=== PATIENT | female | born 1945 | race Caucasian/White ===

== ENCOUNTER → 2018-12-28 | Outpatient (CLI) | payer OTHER | END | disposition home or self-care (01) | LOC: PLD 14:57 → LAB SHORT 14:57 | DX: D22.5 Melanocytic nevi of trunk (principal) | CPT/HCPCS: 88305 ==

== ENCOUNTER → 2021-06-27 | Outpatient (CLI) | payer OTHER | END | disposition home or self-care (01) | LOC: LAB SHORT 08:02 | DX: L57.0 Actinic keratosis (principal) | CPT/HCPCS: 88305 ==

== ENCOUNTER 2023-04-03 13:18 | Observation (INO) | payer OTHER ==
[~2023-04-03] VITALS: Ht 162.6 cm; Wt 60.5 kg
[2023-04-03 14:14] LABS: BASOPHILS ABSOLUTE AUTO 0.04 K/mm3 (0.00-0.23); BASOPHILS PERCENT AUTO 1 % (0-2); EOSINOPHILS ABSOLUTE AUTO 0.22 K/mm3 (0.00-0.68); EOSINOPHILS PERCENT AUTO 3 % (0-6); IMMATURE GRAN ABSOLUTE AUTO 0.02 K/mm3 (0.00-0.10); IMMATURE GRAN PERCENT AUTO 0 % (0-1); LYMPHOCYTES ABSOLUTE AUTO 1.67 K/mm3 (0.84-5.20); LYMPHOCYTES PERCENT AUTO 21 % (21-46); MONOCYTES ABSOLUTE AUTO 0.73 K/mm3 (0.16-1.47); MONOCYTES PERCENT AUTO 9 % (4-13); Mean Corpuscular HGB 32.4 pg (26.0-34.0); Mean Corpuscular HGB Conc 34.1 g/dL (31.5-36.5); Mean Corpuscular Volume 95 fL (80-100); Mean Platelet Volume 11.2 fL (9.1-12.4); NEUTROPHILS ABSOLUTE AUTO 5.26 K/mm3 (1.96-9.15); NEUTROPHILS PERCENT AUTO 66 % (41-73); Platelet Count 198 K/mm3 (150-400); RDW Coefficient Variation 12.9 % (11.7-14.2); RDW Standard Deviation 45.1 fL (35.1-46.3); Red Blood Cell Count 4.63 M/mm3 (3.80-5.20); White Blood Cell Count 7.94 K/mm3 (4.00-11.30)
[2023-04-03 14:19] LABS: Albumin, Blood 3.3 g/dL (3.4-5.0); Bilirubin, Total 0.5 mg/dL (0.1-1.0); Bun/Creatinine Ratio 25.5 (12.0-20.0); Calcium, Blood 9.4 mg/dL (8.5-10.1); Creatinine, Blood 0.78 mg/dL (0.40-1.00); Globulin, Blood 3.3 g/dL (2.2-4.0); Potassium, Blood 3.9 mmol/L (3.5-5.5); Total Protein, Blood 6.6 g/dL (6.4-8.2)
[2023-04-03 17:33] LABS: Anti-Xa UFH, PHA Monitoring <0.10 IU/mL; International Normalized Ratio 0.93; Prothrombin Time Results 9.8 Sec (9.7-11.5)
[2023-04-03 17:58] VITALS: BP 151/89
[2023-04-03] MEDS ORDERED: ATOR20 PO (18:02)
--- NOTE | 2023-04-03 19:30 | NUR ---
ADMIT NOTE NEW ADMIT TO UNIT FROM ER FOR UNSTABLE ANGINA. PATIENT ARRIVED ON GURNEY, ALERT, ORIENTED, ABLE TO STAND AND TRANSFER TO BED SBA. DENIES SOB, CHEST PAIN, OR DIZZINESS. ADMIT HISTORY COMPLETED. NS AND HEPARIN GTT STARTED. ROOM AIR, HYPERTENSIVE, NSR 70'S ON TELE. TOLERATING REGULAR DIET AND LIQUIDS. VOIDING WELL. REPORT GIVEN TO CHIEF PHARMACIST RN. PLAN TO BE NPO AFTER MIDNIGHT, CARDIOLOGY TO BE CONSULTED BY CHIEF PHARMACIST.
[2023-04-03 19:34] VITALS: BP 122/65
--- NOTE | 2023-04-03 19:44 | NUR ---
MEDICATION ERROR HEPARIN BOLUS OF 3,900 UNITS IV INCORRECTLY ADMINISTERED BY THIS RN VIA THE SUBCUTANEOUS ROUTE. ERROR CAUGHT BY STELLA FONTENOT RN DURING BEDSIDE SHIFT REPORT. PATIENT WAS IMMEDIATELY NOTIFIED OF ERROR. THIS RN THEN CALLED AUSTIN DE LA CRUZ NP, THE ORDERING PROVIDER, AND NOTIFIED OF MED ERROR. AUSTIN ADVISED TO NOTIFY PHARMACY AND FOLLOW THEIR DIRECTION. CALLED PHARMACY AND NOTIFIED PHARMACIST OF ERROR. THEY ADVISED NO CHANGES OR ADDITIONAL ORDERS AT THIS TIME. THEY WILL CONTINUE TO FOLLOW PATIENT AND MANAGE HEPARIN GTT PER PROTOCOL.
[2023-04-03 22:50] VITALS: BP 109/64
[2023-04-04] VITALS (7 sets, daily range): BP systolic 122–149; BP diastolic 65–108
[2023-04-04 01:06] LABS: Hematocrit 39.6 % (33.0-51.0); Hemoglobin 13.6 g/dL (11.5-16.0); Mean Corpuscular HGB 32.6 pg (26.0-34.0); Mean Corpuscular HGB Conc 34.3 g/dL (31.5-36.5); Mean Corpuscular Volume 95 fL (80-100); Mean Platelet Volume 11.4 fL (9.1-12.4); Platelet Count 177 K/mm3 (150-400); RDW Coefficient Variation 12.8 % (11.7-14.2); RDW Standard Deviation 44.8 fL (35.1-46.3); Red Blood Cell Count 4.17 M/mm3 (3.80-5.20); White Blood Cell Count 8.87 K/mm3 (4.00-11.30)
[2023-04-04 01:26] LABS: Calcium, Blood 8.6 mg/dL (8.5-10.1); Creatinine, Blood 1.11 mg/dL (0.40-1.00); Potassium, Blood 3.9 mmol/L (3.5-5.5)
--- NOTE | 2023-04-04 05:39 | NUR ---
SHIFT SUMMARY NO ACUTE CHANGES THIS SHIFT. VSS. DENYING CP. ON HEPARIN GTT. IN SB/SR. ON RA/ CONTINENT, UP TO BATHROOM MULTIPLE TIMES THIS SHIFT. FLUIDS INFUSING PER EMAR. PT MADE NPO AT MIDNIGHT FOR POSSIBILITY OF ANGIO POST CARDIOLOGY CONSULT. RESTING FOR MAJORITY OF NIGHT.
--- NOTE | 2023-04-04 10:13 | NUR ---
CARDIAC STRESS TEST ORDERED THIS AM AFTER NITRO DOSE WAS GIVEN. 2ND PART OF STRESS TEST TO BE COMPLETED TOMORROW, RESTING PORTION COMPLETED TODAY. CALL PLACED BY THIS RN TO MD WAGNER. NITRO PASTE DISCONTINUED. HEPARIN GTT CONTINUES.
--- NOTE | 2023-04-04 10:22 | NUR ---
ASSUMPTION OF CARE THIS RN ASSUMED CARE AT APPROX 0715. PT AOX4. PLEASANT, COOPERATIVE WITH CARE. ABLE TO COMMUNICATE NEEDS EFFECTIVELY NEEDED. VSS. BP STABLE. ONE EPISODE OF REPORTED CHEST PRESSURE FOLLOWING AMBULATION TO RESTROOM. PRESSURE RADIATING TO L ARM. REPORTS THAT PRESSURE IS TOLERABLE, SEEMS TO BE DECREASING WITH REST. NITRO PASTE DC'd DUE TO STRESS TEST. ECHOCARDIOGRAM COMPLETED THIS MORNING. UNABLE TO PERFORM ONE DAY STRESS TEST PROTOCOL DUE TO NITRO USE THIS MORNING, PLAN FOR TWO-DAY PROTOCOL. HEPARIN GTT INFUSING PER EMAR. CURRENTLY ON ROOM AIR, SATS >90%. PT IS A STANDBY ASSIST IN ROOM FOR CORD/DEVICE MANAGEMENT. VOIDING. PT IS CURRENTLY OUT OF ROOM COMPLETING PORTION OF STRESS TEST. WILL CONTINUE TO MONITOR. CALL LIGHT IN REACH.
--- NOTE | 2023-04-04 10:35 | NUR ---
UPDATE CALL PLACED TO MD MALLOY TO CLARIFY HEPARIN GTT, THIS RN READ PLAN TO DISCONTINUE HEPARIN IN CONSULT NOTE. RCVD ORDER TO DC HEPARIN GTT. PHARMACY NOTIFIED.
--- NOTE | 2023-04-04 10:49 | NUR ---
UPDATE PT RETURNED FROM NUCLEAR MEDICINE VIA WHEELCHAIR. REPORTS THAT CHEST PRESSURE IS NOW GONE. HEPARIN GTT STOPPED. CALL LIGHT IN REACH.
--- NOTE | 2023-04-04 11:26 | NUR ---
Pt. is awake in bed when she welcomes my visit. Pt. is pleasant but guarded at first. Faclitated a life review and listened with interest, empathy and a calming presence. Pt. displays evidence of being aware and engaged in her care. Prayed with the Pt. Pt. verbalized gratitude for the spiritual care visit and requested a nurse come visit.
[2023-04-04 13:05] LABS: LDL/HDL RATIO 0.6; Very Low Density Lipoprot Chol 40 mg/dL (6-32)
[2023-04-04 13:06] LABS: CHOL/HDL RATIO 2.4; Cholesterol 121 mg/dL (50-200); HDL Cholesterol 51 mg/dL (>39); Low Density Lipoprotein Chol 30 mg/dL (0-110); Triglycerides 201 mg/dL (30-160)
--- NOTE | 2023-04-04 17:22 | NUR ---
SHIFT SUMMARY NO ACUTE CHANGES SINCE EARLIER NOTES. PT REMAINS AOX4. COOPERATIVE WITH CARE. ABLE TO COMMUNICATE NEEDS EFFECTIVELY NEEDED. USES CALL LIGHT APPROPRIATELY. VS REMAIN STABLE. BP STABLE. NO FURTHER EPISODES OF CHEST PRESSURE WITH ACTIVITY SINCE EARLIER (SEE NOTE). ECHOCARDIOGRAM AND FIRST PORTION OF STRESS TEST COMPLETED. PT NPO AT MIDNIGHT, EXCEPT FOR WATER, FOR SECOND PORTION OF STRESS TEST TOMORROW MORNING. HEPARIN GTT DC'D. REMAINS ON ROOM AIR, SATS >90%. STANDY BY ASSIST IN ROOM. VOIDING. IVF INFUSING PER EMAR. PT IS CURRENTLY SITTING UP IN BED EATING DINNER. CALL LIGHT IN REACH. WILL REPORT TO ONCOMING RN.
--- NOTE | 2023-04-04 20:35 | NUR ---
ASSUMED PT CARE FORM RN ON . A&OX4. ABLE TO FOLLOW DIRECTIONS AND MAKE NEEDS KNOWN. DENIES CHEST PAIN/PRESSURE. HR SR IN 70'S. O2 SATS > 92% ON RA. DENIES NAUSEA. AMBULATES IN ROOM WITH SBA WITH IV PUMP. GAIT STEADY. VOIDING WITHOUT DIFFICULTY. CALL LIGHT IN REACH. BED IN LOW POSITION. USING CALL LIGHT APPROPRIATELY.
[2023-04-05 04:26] VITALS: BP 145/84
--- NOTE | 2023-04-05 06:16 | NUR ---
SHIFT SUMMARY: NO ACUTE CHANGES NOTED DURING THIS SHIFT. RESTING COMFORTABLY IN BED WITH EYES CLOSED, APPEARS TO BE SLEEPING. NPO AT CO FOR STRESS TEST THIS A.M. CALL LIGHT IN REACH. IN BED IN LOW POSITION.
[2023-04-05 07:36] LABS: BASOPHILS ABSOLUTE AUTO 0.04 K/mm3 (0.00-0.23); BASOPHILS PERCENT AUTO 1 % (0-2); EOSINOPHILS ABSOLUTE AUTO 0.36 K/mm3 (0.00-0.68); EOSINOPHILS PERCENT AUTO 5 % (0-6); Hematocrit 42.4 % (33.0-51.0); Hemoglobin 14.2 g/dL (11.5-16.0); IMMATURE GRAN ABSOLUTE AUTO 0.03 K/mm3 (0.00-0.10); IMMATURE GRAN PERCENT AUTO 0 % (0-1); LYMPHOCYTES ABSOLUTE AUTO 2.26 K/mm3 (0.84-5.20); LYMPHOCYTES PERCENT AUTO 29 % (21-46); MONOCYTES ABSOLUTE AUTO 0.86 K/mm3 (0.16-1.47); MONOCYTES PERCENT AUTO 11 % (4-13); Mean Corpuscular HGB 32.2 pg (26.0-34.0); Mean Corpuscular HGB Conc 33.5 g/dL (31.5-36.5); Mean Corpuscular Volume 96 fL (80-100); Mean Platelet Volume 11.6 fL (9.1-12.4); NEUTROPHILS ABSOLUTE AUTO 4.15 K/mm3 (1.96-9.15); NEUTROPHILS PERCENT AUTO 54 % (41-73); Platelet Count 191 K/mm3 (150-400); RDW Coefficient Variation 12.7 % (11.7-14.2); RDW Standard Deviation 45.2 fL (35.1-46.3); Red Blood Cell Count 4.41 M/mm3 (3.80-5.20)
[2023-04-05 07:56] LABS: Albumin/Globulin Ratio 0.9 (0.8-1.8); Bilirubin, Total 0.7 mg/dL (0.1-1.0); Bun/Creatinine Ratio 18.1 (12.0-20.0); Calcium, Blood 8.8 mg/dL (8.5-10.1); Creatinine, Blood 0.88 mg/dL (0.40-1.00); Globulin, Blood 3.3 g/dL (2.2-4.0); Total Protein, Blood 6.3 g/dL (6.4-8.2)
[2023-04-05 08:13] VITALS: BP 146/83
--- NOTE | 2023-04-05 09:41 | NUR ---
ASSUMPTION OF CARE THIS RN ASSUMED CARE AT APPROX 0715. PT AOX4. COOPERATIVE WITH CARE. RECEPTIVE TO EDUCATION, ASKS QUESTIONS REGARDING PLAN OF CARE. VSS. TELEMETRY SHOWING SINUS RHYTHM 60's-70's. BP STABLE. NO REPORT OF CHEST PAIN OR PRESSURE. SECOND PORTION OF STRESS TEST INITIATED, TO BE COMPLETED THIS MORNING. ON ROOM AIR, SATS >90%. VOIDING. INDEPENDENT AT BASELINE, STAND BY ASSIST FOR CORD/DEVICE MANAGEMENT. CURRENTLY SITTING IN CHAIR WATCHING TV. CALL LIGHT IN REACH.
[2023-04-05 10:57] VITALS: BP 157/78
--- NOTE | 2023-04-05 11:00 | NUR ---
UPDATE SECOND PORTION OF STRESS TEST COMPLETED. VS REMAIN STABLE. THIS RN CONTACTED MD KAUFMAN REGARDING NEED FOR CONTINUATION OF IV FLUIDS. PER MD, IV FLUIDS TO BE DISCONTINUED. MD TO PUT IN ORDER. PT IS CURRENTLY SITTING IN CHAIR. CALL LIGHT IN REACH.
[2023-04-05 14:56] VITALS: BP 133/83
--- NOTE | 2023-04-05 17:29 | NUR ---
END OF SHIFT NOTE NO ACUTE CHANGES SINCE PREVIOUS NOTES. PT REMAINS AOX4. VS REMAIN STABLE. BP STABLE. NO REPORT OF CHEST PAIN OR PRESSURE. SECOND PORTION OF STRESS TEST COMPLETED TODAY, AWAITING REVIEW. IMAGING CALLED FOR STRESS TEST TO BE READ. REMAINS ON ROOM AIR, SATS >90%. FREQUENTLY UP IN ROOM TO USE RESTROOM, INDEPENDENT TO STAND BY ASSIST. VOIDING. UP IN RECLINER CHAIR FOR MAJORITY OF THE DAY, IS CURRENTLY SITTING IN CHAIR EATING DINNER. CALL LIGHT IN REACH. WILL REPORT TO ONCOMING RN.
[2023-04-05 19:45] VITALS: BP 137/91
--- NOTE | 2023-04-05 20:32 | NUR ---
ASSUMED PT CARE FORM RN ON . A&OX4. DENIES ANY CHEST PAIN/PRESSURE. HR SR IN 70'S WITH STABLE BP, SEE VS RECORD. DENIES SOB WITH SATS > 92% ON RA. DENIES NAUSEA. DENIES NEEDS AT THIS TIME. CALL LIGHT IN REACH. BED IN LOW POSITION.
[2023-04-06 01:36] VITALS: BP 133/73
[2023-04-06 03:58] LABS: BASOPHILS ABSOLUTE AUTO 0.04 K/mm3 (0.00-0.23); BASOPHILS PERCENT AUTO 0 % (0-2); EOSINOPHILS ABSOLUTE AUTO 0.43 K/mm3 (0.00-0.68); EOSINOPHILS PERCENT AUTO 5 % (0-6); Hematocrit 43.7 % (33.0-51.0); Hemoglobin 15.2 g/dL (11.5-16.0); IMMATURE GRAN ABSOLUTE AUTO 0.03 K/mm3 (0.00-0.10); IMMATURE GRAN PERCENT AUTO 0 % (0-1); LYMPHOCYTES ABSOLUTE AUTO 2.34 K/mm3 (0.84-5.20); LYMPHOCYTES PERCENT AUTO 24 % (21-46); MONOCYTES ABSOLUTE AUTO 0.88 K/mm3 (0.16-1.47); MONOCYTES PERCENT AUTO 9 % (4-13); Mean Corpuscular HGB 32.8 pg (26.0-34.0); Mean Corpuscular HGB Conc 34.8 g/dL (31.5-36.5); Mean Corpuscular Volume 94 fL (80-100); Mean Platelet Volume 11.5 fL (9.1-12.4); NEUTROPHILS ABSOLUTE AUTO 5.88 K/mm3 (1.96-9.15); NEUTROPHILS PERCENT AUTO 61 % (41-73); Platelet Count 194 K/mm3 (150-400); RDW Coefficient Variation 12.7 % (11.7-14.2); RDW Standard Deviation 44.1 fL (35.1-46.3); Red Blood Cell Count 4.64 M/mm3 (3.80-5.20)
[2023-04-06 04:24] LABS: Albumin, Blood 3.2 g/dL (3.4-5.0); Albumin/Globulin Ratio 0.9 (0.8-1.8); Bilirubin, Total 0.7 mg/dL (0.1-1.0); Bun/Creatinine Ratio 23.5 (12.0-20.0); Calcium, Blood 9.2 mg/dL (8.5-10.1); Creatinine, Blood 0.89 mg/dL (0.40-1.00); Globulin, Blood 3.6 g/dL (2.2-4.0); Potassium, Blood 3.9 mmol/L (3.5-5.5); Total Protein, Blood 6.8 g/dL (6.4-8.2)
[2023-04-06 05:05] VITALS: BP 126/65
[2023-04-06 05:06] VITALS: BP 126/65
--- NOTE | 2023-04-06 06:05 | NUR ---
SHIFT SUMMARY: PT SLEEPING THROUGHOUT WHOLE OF SHIFT. WAKES EASILY FOR VITAL SIGNS BUT FALLS BACK TO SLEEP. NO ACUTE CHANGES NOTED. NO COMPLAINTS OF CHEST PAIN/PRESSURE. CALL LIGHT IN REACH. BED IN LOW POSITION.
[2023-04-06 07:53] VITALS: BP 137/86
--- NOTE | 2023-04-06 09:57 | NUR ---
MORNING NOTE THIS RN ASSUMED CARE AT APPROX 0715. PT AOX4, PLEASANT. VERBALIZING DESIRE TO DISCHARGE HOME TODAY. COOPERATIVE WITH CARE AND ABLE TO COMMUNICATE HER NEEDS WHEN NEEDED. VSS. BP STABLE. DENIES CHEST PAIN OR PRESSURE. TELEMETRY SHOWING SINUS 60's-70's. ON ROOM AIR, SATS >90%. UP TO RESTROOM THIS MORNING, VOIDED. INDEPENDENT IN ROOM, CALLS APPROPRIATELY FOR ASSISTANCE IF NEEDED. IS SITTING IN RECLINER CHAIR. MD MALLOY TO BEDSIDE THIS MORNING TO DISCUSS STRESS TEST RESULTS. PLAN TO DISCHARGE HOME TODAY. ZIOPATCH PLACEMENT ORDERED. UNABLE TO PLACE PATCH PRIOR TO DISCHARGE TECH IS UNAVAILABLE TODAY. MD MALLOY AWARE OF AND AGREEABLE WITH PLAN FOR FOLLOW UP APPOINTMENT TOMORROW, 04/07, FOR ZIOPATCH PLACEMENT. THIS RN CALLED [facility] AND LEFT VOICEMAIL FOR SCHEDULING. THIS RN FAXED OUTPATIENT CARDIOLOGY OFFICE FOR APPOINTMENT SCHEDULING - BOTH FOR ZIOPATCH PLACEMENT 04/07 AND FOLLOW UP IN 1 WEEK. PT TO TAKE COPY OF ZIO PATCH ORDER WITH DISCHARGE PAPERWORK. THIS RN DISCUSSED UPDATE WITH MD PAYNE IN PERSON, INCLUDING LIST OF DISCHARGE MEDICATIONS ORDERED BY MD MALLOY. MD PAYNE TO PUT IN ORDER FOR PO LASIX, IMDUR, AND SUBLINGUAL NITRO TABS. PT AGREES WITH DISCHARGE PLAN, ENGAGES IN EDUCATION, ASKING QUESTIONS NEEDED. VERBALIZING UNDERSTANDING. CALL LIGHT IN REACH.
[2023-04-06] MEDS ORDERED: ASPI81CH PO (11:58)
[2023-04-06] MEDS ORDERED: FURO20 PO (11:58)
[2023-04-06] MEDS ORDERED: Isosorbide Mono30 MG PO (11:59)
[2023-04-06 12:07] VITALS: BP 136/80
--- NOTE | 2023-04-06 12:58 | NUR ---
DISCHARGE NOTE NO ACUTE CHANGES SINCE PREVIOUS NOTE. PT REMAINS AOX4. VS REMAIN STABLE. BP STABLE. TELEMETRY CONTINUING TO SHOW SR 70's PRIOR TO REMOVAL. NO REPORT OF CHEST PAIN OR PRESSURE. REMAINS ON ROOM AIR, SATS >90%. AT BASELINE MOBILITY STATUS, INDEPENDENT IN ROOM. ABLE TO PERFORM MORNING ADL's W/O ASSIST, INCLUDING PERFORMING A PARTIAL BATH AND DRESSING HERSELF FOR DISCHARGE. IV REMOVED. CYCLE REPAIRER REMOVED. THIS RN PROVIDED DISCHARGE EDUCATION, INCLUDING MEDICATIONS, APPOINTMENT FOR ZIO PATCH TOMORROW 04/07 (COPY OF ZIO PATCH ORDER PROVIDED WITH DISCHARGE EDUCATION), FOLLOW UP APPOINTMENT WITH TELEVISION PRESENTER, AND FOLLOW UP WITH PRIMARY CARE PROVIDER. PT RECEPTIVE TO EDUCATION, ASKS QUESTIONS NEEDED, AND DEMONSTRATES VERBAL UNDERSTANDING. REPORTS NO ADDITIONAL QUESTIONS. PT TO CALL WHEN HER SQL SERVER DEVELOPER IS HERE TO PICK HER UP, WILL TRANSFER TO PERSONAL VEHICLE VIA WHEELCHAIR.
--- NOTE | 2023-04-06 13:14 | NUR ---
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 PT TRANSFERRED OFF OF UNIT AT APPROX 1310 VIA WHEELCHAIR BY THIS RN AND NEIDA RN. PRIOR TO TRANSFERRING HER TO PERSONAL VEHICLE, THIS RN AND NEIDA RN SHOWED PT LOCATION OF [facility] FOR FOLLOW UP APPOINTMENT TOMORROW, 04/07, FOR ZIO PATCH PLACEMENT. PT TRANSFERRED TO PERSONAL VEHICLE AT APPROX 1315. PERSONAL BELONGINGS W/ PT.
[2023-04-07] MEDS ORDERED: VARENICLINE TART1 M2 PO (23:06)
== END 2023-04-06 13:15 | disposition home or self-care (01) ==
LOC: ER 13:18 → PCU 16:43
PROVIDERS: Emergency Medicine; Nurse Practitioner Acute Care; Student in an Organized Health Care Education/Training Program; ADMIT Family Medicine
DX: I25.118 Atherosclerotic heart disease of native coronary artery with other forms of angina pectoris (principal); I25.2 Old myocardial infarction; E78.5 Hyperlipidemia, unspecified; Z87.891 Personal history of nicotine dependence; Z88.0 Allergy status to penicillin
CPT/HCPCS: 36415; 71046; 78452; 80048; 80053; 80061; 83036; 84484; 85025; 85027; 85520; 85610; 85730; 93005; 93010; 93017; 93306; 94760; 96365; 96366; 96375; 96376; 99285-25; A9270; A9500; G0378; J0280; J1644; J2785; J7030

== ENCOUNTER 2023-04-07 18:04 | Observation (INO) | payer OTHER ==
[~2023-04-07] VITALS: Ht 154.9 cm; Wt 47.7 kg
[~2023-04-07 18:04] MED LIST: ASPI81CH PO; ATOR20 PO; FURO20 PO; Isosorbide Mono30 MG PO
[2023-04-07 19:13] LABS: BASOPHILS ABSOLUTE AUTO 0.04 K/mm3 (0.00-0.23); BASOPHILS PERCENT AUTO 0 % (0-2); EOSINOPHILS ABSOLUTE AUTO 0.02 K/mm3 (0.00-0.68); EOSINOPHILS PERCENT AUTO 0 % (0-6); Hematocrit 43.4 % (33.0-51.0); Hemoglobin 15.1 g/dL (11.5-16.0); IMMATURE GRAN ABSOLUTE AUTO 0.11 K/mm3 (0.00-0.10); IMMATURE GRAN PERCENT AUTO 1 % (0-1); LYMPHOCYTES ABSOLUTE AUTO 1.21 K/mm3 (0.84-5.20); LYMPHOCYTES PERCENT AUTO 8 % (21-46); MONOCYTES ABSOLUTE AUTO 0.78 K/mm3 (0.16-1.47); MONOCYTES PERCENT AUTO 5 % (4-13); Mean Corpuscular HGB Conc 34.8 g/dL (31.5-36.5); Mean Corpuscular Volume 95 fL (80-100); Mean Platelet Volume 11.6 fL (9.1-12.4); NEUTROPHILS ABSOLUTE AUTO 13.64 K/mm3 (1.96-9.15); NEUTROPHILS PERCENT AUTO 86 % (41-73); Platelet Count 213 K/mm3 (150-400); RDW Coefficient Variation 12.6 % (11.7-14.2); RDW Standard Deviation 43.8 fL (35.1-46.3); Red Blood Cell Count 4.58 M/mm3 (3.80-5.20)
[2023-04-07 19:35] LABS: Albumin, Blood 3.5 g/dL (3.4-5.0); Albumin/Globulin Ratio 0.9 (0.8-1.8); Bilirubin, Total 0.8 mg/dL (0.1-1.0); Bun/Creatinine Ratio 25.3 (12.0-20.0); Calcium, Blood 9.8 mg/dL (8.5-10.1); Creatinine, Blood 0.87 mg/dL (0.40-1.00); Globulin, Blood 3.8 g/dL (2.2-4.0); Potassium, Blood 4.3 mmol/L (3.5-5.5); Total Protein, Blood 7.3 g/dL (6.4-8.2)
[2023-04-07] MEDS ORDERED: VARENICLINE TART1 M2 PO (23:06)
[2023-04-07 23:50] VITALS: BP 102/66
--- NOTE | 2023-04-08 04:30 | NUR ---
NOC SHIFT SUMMARY: PT. HERE FOR A SYNCOPAL EPISODE, NAUSEA AND VOMITING. PT IS ON TELEMETRY. NO C/O PAIN. CARDIAC HISTORY. ROOM AIR. SBA ASSIST TO BATHROOM. 1 LITER OF NS THEN SALINE LOCK. PATIENT WAS DISCHARGED 04/06/23. PATIENT HAD SHARP CHEST PAIN FOLLOWED BY A SYNCOPAL EVENT. HOLTER MONITOR IN PLACE.
[2023-04-08 04:53] VITALS: BP 112/65
[2023-04-08 05:46] LABS: BASOPHILS ABSOLUTE AUTO 0.02 K/mm3 (0.00-0.23); BASOPHILS PERCENT AUTO 0 % (0-2); EOSINOPHILS ABSOLUTE AUTO 0.19 K/mm3 (0.00-0.68); EOSINOPHILS PERCENT AUTO 2 % (0-6); Hemoglobin 14.3 g/dL (11.5-16.0); IMMATURE GRAN ABSOLUTE AUTO 0.05 K/mm3 (0.00-0.10); IMMATURE GRAN PERCENT AUTO 1 % (0-1); LYMPHOCYTES ABSOLUTE AUTO 2.62 K/mm3 (0.84-5.20); LYMPHOCYTES PERCENT AUTO 25 % (21-46); MONOCYTES ABSOLUTE AUTO 0.98 K/mm3 (0.16-1.47); MONOCYTES PERCENT AUTO 9 % (4-13); Mean Corpuscular HGB 33.1 pg (26.0-34.0); Mean Corpuscular HGB Conc 35.8 g/dL (31.5-36.5); Mean Corpuscular Volume 93 fL (80-100); Mean Platelet Volume 11.4 fL (9.1-12.4); NEUTROPHILS ABSOLUTE AUTO 6.56 K/mm3 (1.96-9.15); NEUTROPHILS PERCENT AUTO 63 % (41-73); Platelet Count 201 K/mm3 (150-400); RDW Coefficient Variation 12.8 % (11.7-14.2); RDW Standard Deviation 43.1 fL (35.1-46.3); Red Blood Cell Count 4.32 M/mm3 (3.80-5.20); White Blood Cell Count 10.42 K/mm3 (4.00-11.30)
[2023-04-08 06:17] LABS: Bun/Creatinine Ratio 22.4 (12.0-20.0); Creatinine, Blood 0.85 mg/dL (0.40-1.00); Potassium, Blood 3.7 mmol/L (3.5-5.5)
[2023-04-08 07:23] VITALS: BP 123/71
--- NOTE | 2023-04-08 12:14 | NUR ---
Patient is lying in bed and alert. She tells me about her falls and her concerns about discharge and that the falls will continue. She expresses her trust in the medical team but also her fears. She tells me that she has good support at home. I provide anxiety containment, therapeutic listening and prayer. Patient responded well and showed signs of reduced stress
[2023-04-08 16:17] VITALS: BP 139/85
--- NOTE | 2023-04-08 18:19 | NUR ---
PATIENT DISCHARGED TO HOME ACCOMPANIED BY HER S.O. IV SALINE LOCK AND TELEMETRY REMOVED WITHOUT INCIDENT. VERBALIZED UNDERSTANDING OF D/C ORDERS. OFF UNIT VIA W/C AT 1800. NO PERSONAL BELONGINGS LEFT BEHIND IN ROOM.
== END 2023-04-08 18:01 | disposition home or self-care (01) ==
LOC: ER 18:04 → MEDS 18:05
PROVIDERS: Emergency Medicine; Family Medicine; ADMIT Student in an Organized Health Care Education/Training Program
DX: R55 Syncope and collapse (principal); I95.9 Hypotension, unspecified; D72.829 Elevated white blood cell count, unspecified; E78.5 Hyperlipidemia, unspecified; I35.1 Nonrheumatic aortic (valve) insufficiency; I25.10 Atherosclerotic heart disease of native coronary artery without angina pectoris; Z88.0 Allergy status to penicillin; Z88.5 Allergy status to narcotic agent; Z72.0 Tobacco use
CPT/HCPCS: 36415; 80048; 80053; 84443; 84484; 85025; 93005; 93010; 96360; 96361; 97162; 97530; 99285-25; A9270; G0378; J7030

== ENCOUNTER 2024-12-27 05:42 | Day surgery (SDC) | payer OTHER ==
[2024-12-27] VITALS (8 sets, daily range): BP systolic 89–117; BP diastolic 52–60
[~2024-12-27 05:42] MED LIST changes: +VARENICLINE TART1 M2 PO
[2024-12-27] MEDS ORDERED: AMLO5 PO (06:17)
[2024-12-27] MEDS ORDERED: METO25ER PO (06:18)
[2024-12-27] MEDS ORDERED: Benzocaine Oral Spray 0.5ML UD ONE (06:26)
[2024-12-27] MEDS ORDERED: NS 1,000 ML IV ONE (06:26)
--- NOTE | 2024-12-27 07:20 | NUR ---
ASSUMED CARE FROM ANESTHESIA. PT AWAKE AND VERBALIZING WELL.
--- NOTE | 2024-12-27 07:33 | NUR ---
PT VERBALIZED UNDERSTANDING OF WRITTEN AND VERBAL D/C INST. IV REMOVED. PT WILL BE TAKEN OUT OF THE DEPARTMENT VIA W/C.
[2024-12-27] MEDS ORDERED: Propofol 10mg/ml 20 ml Vial (Procedural) IV ONE (14:38)
== END 2024-12-27 23:00 | disposition home or self-care (01) ==
LOC: MHTC 05:42
DX: I35.1 Nonrheumatic aortic (valve) insufficiency (principal); I70.0 Atherosclerosis of aorta; I25.10 Atherosclerotic heart disease of native coronary artery without angina pectoris; I77.810 Thoracic aortic ectasia; E78.5 Hyperlipidemia, unspecified; J43.9 Emphysema, unspecified; Z79.82 Long term (current) use of aspirin; Z79.899 Other long term (current) drug therapy; Z88.0 Allergy status to penicillin; Z88.5 Allergy status to narcotic agent
CPT/HCPCS: 93312; 93325; A9270; J2704; J7030